=== PATIENT | female | born 1985 | race Caucasian/White ===

== ENCOUNTER 2018-06-10 06:50 | Day surgery (SDC) | payer BC ==
[2018-06-08 15:26] LABS: Absolute Lymphocytes (CBC) 2.6 K/uL (0.7-4.9); Absolute Monocytes 0.4 K/uL (0.1-1.3); Absolute Neutrophil 4.5 K/uL (1.8-8.0); Basophils % 0.8 % (0-1.3); Eosinophils % 2.8 % (0-4.4); Hematocrit 33.2 % (36.0-45.0); Lymphocytes % 32.8 % (15.3-44.8); MPV 8.1 fL (7.6-11.3); Monocytes % 5.4 % (3.3-12.3)
--- OUTSIDE RECORDS SUMMARY | 2018-06-10 06:53 | XMS REPORT | Continuity of Care Document ---
:1985 Author Organization Interface Problems Problem Status Onset Classification Date Comments Source Date Reported N92.0 - EXCESSIVE Active 05/29/19 [facility] [place] [facility] Eustachian tube Resolved Problem 06/07/2018 [facility] dysfunction Group Hypothyroidism Active Problem 06/07/2018 Medical Group Menorrhagia Active Problem 06/07/2018 Medical Group Morbid obesity Active Problem 06/07/2018 Medical Group Encounter for Active Problem 06/07/2018 Medical wellness Group examination Sinusitis Resolved Problem 06/07/2018 Medical Group Medications Medication Details Route Status Patient Ordering Order Source Instructions Provider Date medroxyprogesterone 10 mg=1 Active acetate 10 MG Oral tab, PO, 2019 Medical Tablet [Provera] Daily, # Group 10 tab, 1 Refill(s), Pharmacy: [facility] levothyroxine 137 mcg 137 Active (0.137 mg) oral microgram= 2019 Medical tablet 1 tab, PO, Group Daily, # 90 tab, 1 Refill(s), Pharmacy: [facility] medroxyprogesterone 10 mg=1 Inactive acetate 10 MG Oral tab, PO, 2019 Medical Tablet [Provera] Daily, # Group 10 tab, 1 Refill(s) levothyroxine 137 mcg 137 Inactive (0.137 mg) oral microgram= 2019 Medical tablet 1 tab, PO, Group Daily, # 90 tab, 1 Refill(s) BD Eclipse Luer-Carrie 1 ea, Active Needle/Syringe 30G [facility], 2019 Medical 0.5 inch 1 mL qWeek, use Group to inject b12, # 53 ea, 11 Refill(s), Pharmacy: [facility] Vitamin B12 1000 See Active mcg/mL injectable Instructio 2019 Medical solution ns, 1 mL Group SUB-Q qweek x 4 doses then qMonth, # 15 mL, 3 Refill(s), Pharmacy: [facility] Vitamin B12 1000 See Inactive mcg/mL injectable Instructio 2019 Medical solution ns, 1 mL Group SUB-Q qweek x 4 doses then qMonth, # 15 mL, 3 Refill(s), Pharmacy: [id number] BD Eclipse Luer-Carrie 1 ea, Inactive Needle/Syringe 30G M[facility], 2019 Medical 0.5 inch 1 mL qWeek, use Group to inject b12, # 53 ea, 11 Refill(s), Pharmacy: [facility] #[id number] levothyroxine 137 mcg 137 Inactive (0.137 mg) oral microgram= 2019 Medical tablet 1 tab, PO, Group Daily, # 90 tab, 1 Refill(s), Pharmacy: [facility] #[id number] Phentermine 37.5 mg=1 Active Hydrochloride 37.5 MG tab, PO, 2019 Medical Oral Tablet Daily, X Group 90 day, # 90 tab, 1 Refill(s) medroxyprogesterone 10 mg=1 No Longer acetate 10 MG Oral tab, PO, Active 2018 Medical Tablet [Provera] Daily, # Group 10 tab, 1 Refill(s), Pharmacy: [facility] #[id number] Phentermine 37.5 mg=1 Inactive Hydrochloride 37.5 MG tab, PO, 2019 Medical Oral Tablet Daily, X Group 30 day, # 30 tab, 0 Refill(s) Amoxicillin 0 Active Refill(s) 2019 Medical Group Allergies, Adverse Reactions, Alerts Substance Category Reaction Severity Reaction Status Date Comments Source type Reported Immunizations Immunization Date Given Site Status Last Comments Source Updated influenza virus 05/21/2018 Left completed [facility] Medical vaccine, Deltoid Comment: Group inactivated<sup>1 waited 15 </sup> mins no adverse reaction Results Order Name Results Value Reference Date Interpretation Comments Source Range Pelvis Pelvis Clinical Indication: - heavy bleeding x 5 weeks 05/29 - [facility] Transvagina Transvaginal /2018 - Puma zaldivar US US Comparison: None Read by: Carlos Becerril MD Dictated Date/time: 05/29/18 18:56 Electronically Signed by: Carlos Becerril MD 05/29/18 18:57 FINAL REPORT US PELVIS Technique: Grayscale, color and Doppler transvaginal imaging of the pelvis was performed with standard technique. FINDINGS: TRANSVAGINAL PELVIC ULTRASOUND: UTERUS: The uterus measures 7.7 x 3.9 x 5.3 cm in size. No uterine masses are visualized. The endometrial stripe measures 18 mm in thickness, heterogeneous in appearance, with complex fluid and debris within the endometrial cavity. OVARIES: The right ovary is not seen the left ovary measures 2.2 x 1.5 x 1.3 cm. There is normal ovarian contour and morphology. There are no adnexal masses. The limited Doppler images show normal left ovarian blood flow. OTHER FINDINGS: No free fluid in the pelvic cul-de-sac. IMPRESSION: Heterogeneous appearance of the endometrium with complex fluid and debris in the endometrial cavity, likely representing blood products. Correlation with direct inspection recommended. Histologic sampli ng may also be performed, as clinically warranted. SL: [id number] Vital Signs Vital Sign Value Date Comments Source Height 170.18 cm 05/21/2018 Medical Group BMI Calculated 63.41 05/21/2018 [facility] Weight 183.636 05/21/2018 Medical Group Systolic (mm Hg) 125 05/21/2018 Medical Group Diastolic (mm Hg) 84 05/21/2018 [facility] Heart Rate 93 05/21/2018 [facility] Temperature Oral (F) 98.6 F 05/21/2018 Medical [facility] Encounters Location Location Encounter Encounter Reason Attending ADM DC Status Source Details Type Number For Provider Date Date Visit Outpatient [id number] ANDREZ ABDUL 02/06 Active [place] [facility] [id number] ANDREZ ABDUL 03/26 [place] [facility] [id number] ANDREZ ABDUL 04/24 [place] [facility] [id number] ANDREZ ABDUL 06/13 Active [place] [facility] [id number] KHURSHEED 07/31 [facility] [place] [facility] [id number] ANDREZ ABDUL 08/16 [place] [facility] [id number] ANDREZ ABDUL 10/[address] [facility] [place] [facility] [id number] ANDREZ ABDUL 05/21 Active [facility] Outpatient [id number] Andrez Abdul 05/21 05/22 [facility] /2018 [facility] Between [id number] 06/02 06/03 Primary Visit /2018 [facility] Between [id number] 06/03 06/04 Primary Visit /2018 [facility] Procedures Procedure Code Date Perfomer Comments Source
--- OUTSIDE RECORDS SUMMARY | 2018-06-10 06:53 | XMS REPORT | Summary of Care ---
:1985 Author Organization [facility] Address [address] [place] [address], [address] [place] [address]- Encounter HQ Encntr_alias(FIN) [id number] Date(s): 06/03/18 - 06/04/18 [facility] [address] [place] [address], [address] [place] [address]- [phone] Vital Signs No data available for this section Problem List Condition Effective Dates Status Health Status Informant Eustachian tube Resolved dysfunction(Confirmed) Hypothyroidism(Confirmed) Active Menorrhagia(Confirmed) Active Morbid obesity(Confirmed) Active Encounter for wellness Active examination(Confirmed) Sinusitis(Confirmed) Resolved Allergies, Adverse Reactions, Alerts Substance Reaction Severity Status NKDA Active Medications No data available for this section Results No data available for this section Immunizations Given and Recorded Vaccine Date Status Refusal Reason influenza virus vaccine, inactivated1 05/21/18 Given 1Result Comment: waited 15 mins no adverse reaction Procedures Procedure Date Related Diagnosis Body Site Status None Completed Social History Social History Type Response Smoking Status Never smoker; Ready to change: No; Concerns about tobacco use in household: No; Exposure to Tobacco Smoke None; Cigarette Smoking Last 365 Days No; Reg Smoking Cessation Counseling No entered on: 05/21/18 Assessment and Plan No data available for this section
--- OUTSIDE RECORDS SUMMARY | 2018-06-10 06:53 | XMS REPORT | Summary of Care ---
:1985 Author Organization [facility] Address [address] [place] [address], [address] [place] [address]- Encounter HQ Encntr_alias(FIN) [id number] Date(s): 06/02/18 - 06/03/18 [facility] [address] [place] [address], [address] [place] [address]- [phone] Vital Signs No data available for this [...]
--- OUTSIDE RECORDS SUMMARY | 2018-06-10 06:54 | XMS REPORT | Summary of Care ---
:1985 Author Organization [facility] Address [address] [place] [address], [address] [place] [address]- Encounter HQ Rosaliar_karley(FIN) [id number] Date(s): 05/21/18 - 05/21/18 [facility] [address] [place] [address], [address] [address]- [phone] Discharge Disposition: Home or Self Care Attending Physician: Andrez Mendoza MD Vital Signs Most recent to oldest [Reference Range]: 1 Height 170.18 cm (05/21/18 12:35 PM) Temperature Oral [96.4-99.1 DegF] 98.6 DegF (05/21/18 12:35 PM) Blood Pressure [90-140/60-90 mmHg] 125/84 mmHg (05/21/18 12:35 PM) Peripheral Pulse Rate [60-100 bpm] 93 bpm (05/21/18 12:35 PM) Weight 183.636 kg (05/21/18 12:35 PM) Body Mass Index 63.41 m2 (05/21/18 12:35 PM) Problem List Condition Effective Dates Status Health Status Informant Eustachian tube Resolved dysfunction(Confirmed) Hypothyroidism(Confirmed) Active Menorrhagia(Confirmed) Active Morbid obesity(Confirmed) Active Encounter for wellness Active examination(Confirmed) Sinusitis(Confirmed) Resolved Allergies, Adverse Reactions, Alerts Substance Reaction Severity Status NKDA Active Medications amoxicillin 0 Refill(s) Start Date: 05/21/18 Status: OrderedBD Eclipse Luer-Carrie Needle/Syringe 30G 0.5 inch 1 mL 1 ea, MISC, qWeek, use to inject b12, # 53 ea, 11 Refill(s), Pharmacy: [id number] Start Date: 05/22/18 Stop Date: 05/22/18 Status: DiscontinuedBD Eclipse Luer-Carrie Needle/Syringe 30G 0.5 inch 1 mL 1 ea, MISC, qWeek, use to inject b12, # 53 ea, 11 Refill(s), Pharmacy: [facility] 527 Start Date: 05/22/18 Stop Date: 05/19/30 Status: Orderedlevothyroxine 137 mcg (0.137 mg) oral tablet 137 microgram=1 tab, PO, Daily, # 90 tab, 1 Refill(s), Pharmacy: [facility] 527 Start Date: 05/22/18 Status: Orderedlevothyroxine 137 mcg (0.137 mg) oral tablet 137 microgram=1 tab, PO, Daily, # 90 tab, 1 Refill(s), Pharmacy: [facility] # [id number] Start Date: 05/22/18 Stop Date: 05/22/18 Status: Discontinuedlevothyroxine 137 mcg (0.137 mg) oral tablet 137 microgram=1 tab, PO, Daily, # 90 tab, 1 Refill(s) Start Date: 05/22/18 Stop Date: 05/22/18 Status: Completedphentermine 37.5 mg oral tablet 37.5 mg=1 tab, PO, Daily, X 30 day, # 30 tab, 0 Refill(s) Start Date: 05/21/18 Stop Date: 05/21/18 Status: Discontinuedphentermine 37.5 mg oral tablet 37.5 mg=1 tab, PO, Daily, X 90 day, # 90 tab, 1 Refill(s) Start Date: 05/21/18 Stop Date: 11/17/18 Status: OrderedProvera 10 mg oral tablet 10 mg=1 tab, PO, Daily, # 10 tab, 1 Refill(s), [id number] Start Date: 05/21/18 Stop Date: 05/22/18 Status: DiscontinuedProvera 10 mg oral tablet 10 mg=1 tab, PO, Daily, # 10 tab, 1 Refill(s) Start Date: 05/22/18 Stop Date: 05/22/18 Status: CompletedProvera 10 mg oral tablet 10 mg=1 tab, PO, Daily, # 10 tab, 1 Refill(s), Pharmacy: [facility] Start Date: 05/22/18 Status: OrderedVitamin B12 1000 mcg/mL injectable solution See Instructions, 1 mL SUB-Q qweek x 4 doses then qMonth, # 15 mL, 3 Refill(s), Pharmacy: [facility] Start Date: 05/22/18 Status: OrderedVitamin B12 1000 mcg/mL injectable solution See Instructions, 1 mL SUB-Q qweek x 4 doses then qMonth, # 15 mL, 3 Refill(s), [id number] Start Date: 05/22/18 Stop Date: 05/22/18 Status: Discontinued Results No data available for this section [...]
[2018-06-10] MEDS ORDERED: NA CHLORIDE 0.9% 1,000 ML ONE (07:14)
[2018-06-10] MEDS ORDERED: Ringers Lactate 1,000 ML IV ONE (07:34)
[2018-06-10] MEDS ORDERED: PROPOFOL 200 MG/20 ML VIAL IV ONE ×2 (08:08→08:44)
[2018-06-10] MEDS ORDERED: LIDOCAINE 2% MPF 5 ML VIAL ONE (08:09)
[2018-06-10] MEDS ORDERED: FENTANYL CITR 100 MCG/2 ML ONE (08:09)
[2018-06-10] MEDS ORDERED: ONDANSETRON 4 MG/2 ML VIAL ONE (08:10)
[2018-06-10] MEDS ORDERED: MIDAZOLAM HCL 2 MG/2 ML INJ ONE (08:10)
[2018-06-10] MEDS ORDERED: KETOROLAC 30 MG/ML INJ ONE (09:02)
[2018-06-10] MEDS: PROMETHAZINE 25 MG/ML VIAL ONE ×2 (09:06→09:10)
[2018-06-10] MEDS: MEPERIDINE HCL 50 MG/ML AMP ONE ×2 (09:18→09:28)
--- NOTE | 2018-06-10 20:34 | OP ---
Date of Procedure: 06/10/2018 Surgeon: Tigist Lopez MD Preoperative Diagnoses: Heavy menstrual, irregular bleeding, the patient with morbid obesity, BMI of 61. Procedures Performed: Hysteroscopy, dilatation and curettage. Anesthesia: General with LMA. Specimens: Endometrial curettings. Complications: None. Drains: None. Patient Condition: Stable. Findings: Endometrium thickened globally. No intracavitary lesions. Both tubal ostia were well vis ualized. Scope removed and adequate sampling performed. Indications: The patient is a 32-year-old with heavy bleeding, oligomenorrhea in the past and when s he does have periods bleeding heavy. She was referred to me by Dr. Carolina. On evaluation with michelle granados, her endometrium appeared to be thick. She was here with me in consultation after starting P rovera. Due to the increased risk of endometrial adenocarcinoma or atypia and the patient with her B UT and her menstrual history, decided to perform hysteroscopy, D and C. The patient had been continu ously bleeding for more than 4 weeks at the time I had seen her, so she was brought into the hospital for performing the curettage. Description Of Procedure: After informed consent was verified, she was brought back to the OR, place d in a supine fashion on the operating table after general anesthesia was given and laryngeal mask wa s placed. The patient was placed in a dorsal lithotomy position using Bin stirrups. The weight on the stirrups was checked and good for the weight of the patient. Exam difficult to perform. Speculum placed to expose the cervix. Anterior lip grasped with 2 Allis clamps, prep x3 with Betadine was done. SlimLine diagnostic hysteroscope was introduced through cerv ical canal into the uterine cavity. The cavity had thickened lining as dictated above. Both tubal o stia visualized. No intracavitary lesions. Mostly posterolateral wall on the right thickened. The scope pulled out. Endometrial curettings were performed with a #2 curette. Adequate amount of sampl ing was obtained from all 4 rincon of the uterine cavity. Gentle curettage was performed to prevent a ny adhesions. After these were handed out, all the instruments were removed. Instrument, needle, and sponge counts were done and were correct at the end of the case. The patient was recovered from anesthesia in the OR without any complications and taken to PACU in stable condition. She will be following up with katarina rosales in 1 week for results and then treatment plan, most likely observation with Provera withdrawal ever y 3 months would be optimal for this patient as she is getting pretty soon. However, she has b een counseled thoroughly about weight loss and the risks, mortality and morbidity risks associated wi th for her, the maternal risks and risks were all discussed in detail. She may need a referral to an forest manager at a point where she is ready to try to conceive. ANANTH Voice ID: [id number] Report ID: [id number]
== END 2018-06-10 12:00 | disposition home or self-care (01) ==
LOC: OR 06:50
PROVIDERS: ATTEND Obstetrics & Gynecology
PROC: 0UJD8ZZ Inspection of Uterus and Cervix, Via Natural or Artificial Opening Endoscopic (ICD-10-PCS; 2018-06-10)
PROC: 0UDB7ZX Extraction of Endometrium, Via Natural or Artificial Opening, Diagnostic (ICD-10-PCS; principal; 2018-06-10 08:30)
DX: N92.1 Excessive and frequent menstruation with irregular cycle (principal); E28.2 Polycystic ovarian syndrome; E66.01 Morbid (severe) obesity due to excess calories; Z68.44 Body mass index [BMI] 60.0-69.9, adult; E03.9 Hypothyroidism, unspecified; Z82.49 Family history of ischemic heart disease and other diseases of the circulatory system
CPT/HCPCS: 36415; 81025; 85025; 88305; J2175; J2250; J2405; J2550; J2704; J3010; J7030

== ENCOUNTER 2019-07-17 19:45 | Emergency (ER) | payer BC ==
[2019-07-17 20:18] LABS: Urine Blood NEGATIVE (NEG); Urine Glucose NEGATIVE (NEG); Urine Protein NEGATIVE (NEG); Urine Specific Gravity 1.025 (1.005-1.030)
[2019-07-17 20:30] LABS: Urine Bacteria >50 /HPF (<20); Urine Culture Reflex Order NOT NEEDED; Urine Mucus 1+ /HPF (NONE SEEN); Urine RBC <5 /HPF (NONE SEEN)
--- NOTE | 2019-07-17 20:34 | ER ---
Nurse's Notes [facility] Name: Socorro Nichols Age: 33 yrs Sex: Female : 1985 Arrival Date: 07/17/2019 Time: 19:49 Bed 16 Private MD: Diagnosis: Urinary tract infection, site not specified Presentation: 07/16 20:00 Chief complaint: Patient states: while at the grocery store suddenly I felt dizzy, rr5 having blurred vision, my peripheral vision went to black and having frontal headache going to the right side of my head. denies LOC. 20:00 Coronavirus screen: Patient denies fever greater than 100.4F, cough, shortness of rr5 breath, or difficulty breathing. Proceed with normal triage process. Ebola Screen: Patient negative for fever greater than or equal to 101.5 degrees Fahrenheit, and additional compatible Ebola Virus Disease symptoms Patient denies exposure to infectious person. Patient denies travel to an Ebola-affected area in the 21 days before illness onset. Initial Sepsis Screen: Does the patient meet any 2 criteria? No. Patient's initial sepsis screen is negative. Does the patient have a suspected source of infection? No. Patient's initial sepsis screen is negative. Risk Assessment: Do you want to hurt yourself or someone else? Patient reports no desire to harm self or others. Onset of symptoms was July 17, 2019 at 16:00. 20:00 Method Of Arrival: Ambulatory rr5 20:00 Acuity: GRACIELA 4 rr5 Triage Assessment: 20:00 Headache History: The patient has had previous headaches and this one is different than rr5 previous episodes. Pain: Also complains of nausea. 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 - Social history:: Smoking status: unknown Patient/guardian denies using alcohol, street drugs, tobacco products. Screenin:05 Abuse screen: Denies threats or abuse. Denies injuries from another. Nutritional rr5 screening: No deficits noted. Tuberculosis screening: No symptoms or risk factors identified. Fall Risk None identified. Total Adair Fall Scale indicates No Risk (0-24 pts). Assessment: 20:00 General: Appears in no apparent distress. comfortable, Behavior is calm, cooperative, rr5 appropriate for age. 20:00 Pain: Complains of pain in head Pain radiates to right occipital area Pain currently is rr5 5 out of 10 on a pain scale. Quality of pain is described as aching, Pain began gradually, Is intermittent. Neuro: Level of Consciousness is awake, alert, obeys commands, Oriented to person, place, time, situation, Appropriate for age Reports dizziness, headache in right frontal area, occipital area. Cardiovascular: Capillary refill < 3 seconds Patient's skin is warm and dry. Respiratory: Airway is patent Respiratory effort is even, unlabored, Respiratory pattern is regular, symmetrical. GI: Abdomen is obese, Reports nausea. : No signs and/or symptoms were reported regarding the genitourinary system. EENT: No signs and/or symptoms were reported regarding the EENT system. Derm: Skin is intact, is healthy with good turgor, Skin temperature is warm. Musculoskeletal: Circulation, motion, and sensation intact. Capillary refill < 3 seconds. 21:00 Reassessment: Patient appears in no apparent distress at this time. Patient is alert, rr5 oriented x 3, equal unlabored respirations, skin warm/dry/pink. discharge instruction given and explained without complaints made. Vital Signs: 20:00 BP 156 / 75; Pulse 88; Resp 16; Temp 98.3; Pulse Ox 99% ; Weight 181.44 kg; Height 5 rr5 ft. 7 in. (170.18 cm); Pain 5/10; 21:00 BP 154 / 90; Pulse 97; Resp 19; Pulse Ox 99% ; rr5 20:00 Body Mass Index 62.65 (181.44 kg, 170.18 cm) rr5 ED Course: 19:49 Patient arrived in ED. mr 19:53 Alex Brown, JL is Primary Nurse. rr5 19:53 Brynn Crooks FNP-C is [facility]. snw 19:53 Raul Sultana MD is Attending Physician. snw 20:00 Arm band placed on left wrist. rr5 20:01 Patient has correct armband on for positive identification. Bed in low position. Call rr5 light in reach. 20:09 Triage completed. rr5 20:25 No provider procedures requiring assistance completed. Urine collected: clean catch rr5 specimen, clear, Strep swab sent to lab. 21:00 Patient did not have IV access during this emergency room visit. rr5 Administered Medications: 20:40 Drug: Rocephin (cefTRIAXone) 1 grams Route: IM; Site: right gluteus; rr5 21:00 Follow up: Response: No adverse reaction rr5 20:41 Drug: Ondansetron (Zofran) 4 mg Route: PO; rr5 21:00 Follow up: Response: No adverse reaction rr5 Outcome: 20:33 Discharge ordered by . snw 20:55 Discharged to home ambulatory. rr5 20:55 Condition: stable 20:55 Discharge instructions given to patient, Instructed on discharge instructions, follow up and referral plans. medication usage, Demonstrated understanding of instructions, follow-up care, medications, Prescriptions given X 2. 21:00 Patient left the ED. rr5 Signatures: Brynn Crooks, MANAGER FOOD-C MANAGER FOOD-Csnw Mary Hannon Raymond, RN RN rr5 Corrections: (The following items were deleted from the chart) 20:47 20:00 GI: No signs and/or symptoms were reported involving the gastrointestinal system. rr5 rr5
--- NOTE | 2019-07-17 20:34 | EDPHYS ---
Physician Documentation [facility] Name: Socorro Nichols Age: 33 yrs Sex: Female : 1985 Arrival Date: 07/17/2019 Time: 19:49 Bed 16 Private MD: ED Physician Raul Sultana HPI: 07/16 20:51 This 33 yrs old Female presents to ER via Ambulatory with complaints of snw Headache, Nausea. 20:51 The patient complains of pain to the top of head and forehead. The patient describes snw the headache as aching. Onset: The symptoms/episode began/occurred gradually. Associated signs and symptoms: Pertinent positives: weakness. Severity of symptoms: At its worst the pain was mild, moderate. Headache History: The patient has had previous headaches and this one is similar to previous episodes. It is unknown whether or not the patient has had similar symptoms in the past. The patient has not recently seen a physician. 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 - Social history:: Smoking status: unknown Patient/guardian denies using alcohol, street drugs, tobacco products. ROS: 20:47 Eyes: Negative for injury, pain, redness, and discharge, ENT: Negative for injury, snw pain, and discharge, Neck: Negative for injury, pain, and swelling, Cardiovascular: Negative for chest pain, palpitations, and edema, Respiratory: Negative for shortness of breath, cough, wheezing, and pleuritic chest pain, Abdomen/GI: Negative for abdominal pain, nausea, vomiting, diarrhea, and constipation, Back: Negative for injury and pain, : Negative for injury, bleeding, discharge, and swelling, MS/Extremity: Negative for injury and deformity, Skin: Negative for injury, rash, and discoloration, Psych: Negative for depression, anxiety, suicide ideation, homicidal ideation, and hallucinations. 20:47 Constitutional: Positive for body aches, chills, fatigue, malaise. 20:47 Neuro: Positive for headache, near syncope, weakness. Exam: 20:47 Constitutional: This is a well developed, well nourished patient who is awake, alert, snw and in no acute distress. Head/Face: Normocephalic, atraumatic. Eyes: Pupils equal round and reactive to light, extra-ocular motions intact. Lids and lashes normal. Conjunctiva and sclera are non-icteric and not injected. Cornea within normal limits. Periorbital areas with no swelling, redness, or edema. ENT: Nares patent. No nasal discharge, no septal abnormalities noted. Tympanic membranes are normal and external auditory canals are clear. Oropharynx with no redness, swelling, or masses, exudates, or evidence of obstruction, uvula midline. Mucous membranes moist. Neck: Trachea midline, no thyromegaly or masses palpated, and no cervical lymphadenopathy. Supple, full range of motion without nuchal rigidity, or vertebral point tenderness. No Meningismus. Chest/axilla: Normal chest wall appearance and motion. Nontender with no deformity. No lesions are appreciated. Cardiovascular: Regular rate and rhythm with a normal S1 and S2. No gallops, murmurs, or rubs. Normal PMI, no JVD. No pulse deficits. Respiratory: Lungs have equal breath sounds bilaterally, clear to auscultation and percussion. No rales, rhonchi or wheezes noted. No increased work of breathing, no retractions or nasal flaring. Abdomen/GI: Soft, non-tender, with normal bowel sounds. No distension or tympany. No guarding or rebound. No evidence of tenderness throughout. Back: No spinal tenderness. No costovertebral tenderness. Full range of motion. Skin: Warm, dry with normal turgor. Normal color with no rashes, no lesions, and no evidence of cellulitis. MS/ Extremity: Pulses equal, no cyanosis. Neurovascular intact. Full, normal range of motion. Neuro: Awake and alert, GCS 15, oriented to person, place, time, and situation. Cranial nerves II-XII grossly intact. Motor strength 5/5 in all extremities. Sensory grossly intact. Cerebellar exam normal. Normal gait. Psych: Awake, alert, with orientation to person, place and time. Behavior, mood, and affect are within normal limits. Vital Signs: 20:00 BP 156 / 75; Pulse 88; Resp 16; Temp 98.3; Pulse Ox 99% ; Weight 181.44 kg; Height 5 rr5 ft. 7 in. (170.18 cm); Pain 5/10; 21:00 BP 154 / 90; Pulse 97; Resp 19; Pulse Ox 99% ; rr5 20:00 Body Mass Index 62.65 (181.44 kg, 170.18 cm) rr5 MDM: 19:53 Patient medically screened. snw 20:34 Data reviewed: vital signs, nurses notes. Data interpreted: Pulse oximetry: on room air snw is 99 %. Interpretation: normal. Counseling: I had a detailed discussion with the patient and/or guardian regarding: the historical points, exam findings, and any diagnostic results supporting the discharge/admit diagnosis, lab results, the need for outpatient follow up, to return to the emergency department if symptoms worsen or persist or if there are any questions or concerns that arise at home. Special discussion: I have referred the patient to see his PCP for further evaluation of high blood pressure. Based on the history and exam findings, there is no indication for further emergent testing or inpatient evaluation. I discussed with the patient/guardian the need to see the primary care provider for further evaluation of the symptoms. 07/16 20:00 Order name: Urine Culture snw 07/16 20:00 Order name: Urine Microscopic Only; Complete Time: 20:32 snw 07/16 20:00 Order name: Strep; Complete Time: 20:32 snw 07/16 20:10 Order name: Glucose, Ancillary Testing; Complete Time: 20:32 EDMS 07/16 20:15 Order name: Urine Dipstick--Ancillary (enter results); Complete Time: 20:32 ar5 07/16 20:15 Order name: Urine --Ancillary (enter results); Complete Time: 20:32 ar5 07/16 20:00 Order name: FSBS; Complete Time: 20:05 snw 07/16 20:00 Order name: Urine Test (obtain specimen); Complete Time: 20:18 snw 07/16 20:00 Order name: Urine Dipstick-Ancillary (obtain specimen); Complete Time: 20:18 snw 07/16 20:31 Order name: Throat Culture EDMS Administered Medications: 20:40 Drug: Rocephin (cefTRIAXone) 1 grams Route: IM; Site: right gluteus; rr5 21:00 Follow up: Response: No adverse reaction rr5 20:41 Drug: Ondansetron (Zofran) 4 mg Route: PO; rr5 21:00 Follow up: Response: No adverse reaction rr5 Disposition: 07/17 08:10 Co-signature as Attending Physician, Raul Sultana MD. rn Disposition: 07/17/19 20:33 Discharged to Home. Impression: Urinary tract infection, site not specified. - Condition is Stable. - Discharge Instructions: Urinary Tract Infection, Adult, Rehydration, Adult. - Prescriptions for Augmentin 875- 125 mg Oral Tablet - take 1 tablet by ORAL route every 12 hours for 10 days; 20 tablet. promethazine 25 mg Oral Tablet - take 1 tablet by ORAL route every 6 hours As needed; 20 tablet. - Work release form, Medication Reconciliation Form, Thank You Letter, Antibiotic Education, Prescription Opioid Use form. - Follow up: Emergency Department; When: As needed; Reason: Worsening of condition. Follow up: Private Physician; When: 2 - 3 days; Reason: Recheck today's complaints, Continuance of care, Re-evaluation by your physician. Signatures: Dispatcher [employer] EDFL Brynn Crooks, SALES MANAGEMENT INTERN-C SALES MANAGEMENT INTERN-Csnw Raul Sultana MD MD rn Roque, Raymond, RN RN rr5 Corrections: (The following items were deleted from the chart) 07/16 21:00 20:33 07/17/2019 20:33 Discharged to Home. Impression: Urinary tract infection, site rr5 not specified. Condition is Stable. Forms are Medication Reconciliation Form, Thank You Letter, Antibiotic Education, Prescription Opioid Use. Follow up: Emergency Department; When: As needed; Reason: Worsening of condition. Follow up: Private Physician; When: 2 - 3 days; Reason: Recheck today's complaints, Continuance of care, Re-evaluation by your physician. snw
[2019-07-17] MEDS ORDERED: CEFTRIAXONE 1000 MG/VIAL ONE (20:43)
[2019-07-17] MEDS ORDERED: LIDOCAINE 1% MPF 2 ML AMPULE ONE (20:43)
[2019-07-17] MEDS ORDERED: ONDANSETRON 4 MG (ODT) TAB ONE (20:44)
[2019-07-17 21:05] VITALS: BP 156/75; TEMP 98.3; O2SAT 99
== END 2019-07-17 21:00 | disposition home or self-care (01) ==
LOC: ER 19:45
DX: N39.0 Urinary tract infection, site not specified (principal); E03.9 Hypothyroidism, unspecified
CPT/HCPCS: 87070; 87088; 87086; 81025; 82947; 87081; 96372; 99283; J2001; 81003; 81015

== ENCOUNTER 2022-09-23 07:40 | Emergency (ER) | payer BC ==
[2022-09-23] MEDS ORDERED: ONDANSETRON 4 MG/2 ML VIAL ONE (08:06)
[2022-09-23] MEDS ORDERED: KETOROLAC 30 MG/ML INJ ONE (08:06)
[2022-09-23] MEDS ORDERED: NA CHLORIDE 0.9% 1,000 ML ONE (08:07)
[2022-09-23 08:14] LABS: Absolute Lymphocytes (CBC) 0.8 K/uL (0.7-4.9); MCV 68.1 fL (80-100); MPV 7.6 fL (7.6-11.3); RBC Red Blood Cell Count 5.29 M/uL (3.86-4.86)
[2022-09-23 08:41] LABS: Albumin 3.1 g/dL (3.4-5.0); Bilirubin Total 0.5 mg/dL (0.2-1.0); Potassium 3.5 mEq/L (3.5-5.1); Protein, Total 7.7 g/dL (6.4-8.2)
[2022-09-23 10:44] LABS: Anisocytosis 1+; Blood Morphology Comment NOTED (NOT SEEN); Platelet Estimate ADEQ
[2022-09-23 10:45] LABS: Hypochromasia 1+
[2022-09-23 11:57] LABS: Specific Gravity 1.027 (1.005-1.030)
[2022-09-23 12:02] LABS: Specific Gravity 1.027 (1.005-1.030); Urine Bacteria <20 /HPF (<20); Urine Bilirubin NEGATIVE (Negative); Urine Blood Negative (Negative); Urine Clarity Extremely Turbid (Clear); Urine Color Yellow (Yellow); Urine Glucose NEGATIVE (Negative); Urine Mucus 4+ /HPF (None Seen); Urine Protein 1+ (Negative); Urine RBC <5 /HPF (None Seen); Urine Urobilinogen Normal (Normal); Urine pH 5.5 (5.0-7.0)
--- NOTE | 2022-09-23 12:19 | ER ---
Nurse's Notes [facility] Name: Socorro Nichols Age: 36 yrs Sex: Female : 1985 Arrival Date: 09/23/2022 Time: 07:40 Bed 5 Private MD: Diagnosis: Nausea with vomiting, unspecified;Abdominal pain, Generalized Presentation: 09/23 07:51 Chief complaint: Patient states: N/V since yesterday, diarrhea today. Coronavirus jl7 screen: At this time, the client does not indicate any symptoms associated with coronavirus-19. Ebola Screen: No symptoms or risks identified at this time. Initial Sepsis Screen: Does the patient meet any 2 criteria? No. Patient's initial sepsis screen is negative. Does the patient have a suspected source of infection? No. Patient's initial sepsis screen is negative. Risk Assessment: Do you want to hurt yourself or someone else? Patient reports no desire to harm self or others. Onset of symptoms was September 22, 2022. 07:51 Method Of Arrival: Ambulatory [facility] 07:51 Acuity: GRACIELA 3 jl7 Triage Assessment: 07:52 General: Appears in no apparent distress. uncomfortable, Behavior is calm, cooperative, jl7 appropriate for age. Pain: Complains of pain in abdomen Pain currently is 8 out of 10 on a pain scale. GI: Reports diarrhea, nausea, vomiting. 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 - Social history:: Smoking status: Patient denies any tobacco usage or history of. Screenin:08 [facility] ED Fall Risk Assessment (Adult) History of falling in the last 3 months, ph including since admission No falls in past 3 months (0 pts) Confusion or Disorientation No (0 pts) Intoxicated or Sedated No (0 pts) Impaired Gait No (0 pts) Mobility Assist Device Used No (0 pt) Altered Elimination No (0 pt) Score/Fall Risk Level 0 - 2 = Low Risk Oriented to surroundings, Maintained a safe environment, Hourly rounding (assess needs \T\ fall precautionary measures) done. Abuse screen: Denies threats or abuse. Denies injuries from another. Nutritional screening: No deficits noted. Tuberculosis screening: No symptoms or risk factors identified. Assessment: 08:08 General: Appears in no apparent distress. uncomfortable, Behavior is calm, cooperative, ph appropriate for age. Pain: Complains of pain in back and abdomen. Neuro: Level of Consciousness is awake, alert, confused, Oriented to person, place, time, situation. Cardiovascular: Capillary refill < 3 seconds in bilateral fingers Patient's skin is warm and dry. Respiratory: Airway is patent Respiratory effort is even, unlabored, Respiratory pattern is regular, symmetrical. GI: Abdomen is obese, Reports lower abdominal pain, diarrhea, nausea, vomiting. : No signs and/or symptoms were reported regarding the genitourinary system. Derm: Skin is healthy with good turgor. Vital Signs: 07:51 BP 150 / 110; Pulse 114; Resp 17; Temp 99.1; Pulse Ox 97% ; Pain 8/10; jl7 08:10 BP 115 / 94; Pulse 92; Resp 18; Pulse Ox 99% on R/A; ko1 08:23 BP 113 / 72; Pulse 86; Resp 16; Pulse Ox 97% ; ko1 09:25 BP 123 / 69; Pulse 91; Resp 16; Pulse Ox 98% ; ko1 11:01 BP 116 / 68; Pulse 87; Resp 18; Pulse Ox 98% on R/A; ph 07:51 Pain Scale: Adult jl7 ED Course: 07:43 Patient arrived in ED. mr 07:45 Kota Lazo DO is Attending Physician. ms3 07:52 Triage completed. jl7 07:52 Arm band placed on right wrist. jl7 07:59 Elba Curtis, RN is Primary Nurse. ko1 08:07 CBC with Diff Sent. ph 08:07 CMP Sent. ph 08:07 Lipase Sent. ph 08:07 Initial lab(s) drawn, by nv, sent to lab. Inserted saline lock: 20 gauge in right ph antecubital area, using aseptic technique. Blood collected. 08:08 Patient has correct armband on for positive identification. Bed in low position. Call ph light in reach. Side rails up X 1. Pulse ox on. NIBP on. Door closed. Noise minimized. Warm blanket given. 12:17 Woody Alonzo DO is Referral Physician. ms3 12:32 No provider procedures requiring assistance completed. IV discontinued, intact, ko1 bleeding controlled, No redness/swelling at site. Pressure dressing applied. Administered Medications: 08:07 Drug: NS 0.9% IV 1000 ml Route: IV; Rate: 1 bolus; Site: right antecubital; ph 09:21 Follow up: Response: No adverse reaction; IV Status: Completed infusion; IV Intake: ko1 1000ml 08:07 Drug: TORadol - Ketorolac IVP 15 mg Route: IVP; Site: right antecubital; ph 09:22 Follow up: Response: No adverse reaction; Pain is decreased ko1 08:07 Drug: Ondansetron IVP 4 mg Route: IVP; Site: right antecubital; ph 09:22 Follow up: Response: No adverse reaction; Nausea is decreased ko1 Medication: 08:08 VIS not applicable for this client. ph Intake: 09:21 IV: 1000ml; Total: 1000ml. ko1 Outcome: 12:18 Discharge ordered by . ms3 12:32 Discharged to home ambulatory, with family. ko1 12:32 Condition: improved 12:32 Discharge instructions given to patient, family, Instructed on discharge instructions, follow up and referral plans. medication usage, Demonstrated understanding of instructions, follow-up care, medications, Prescriptions given X 1. 12:32 Patient left the ED. ko1 Signatures: Mary Hannon mr Sierra Villarreal, RN RN Kenny Ferguson RN RN jl7 Kota Lazo DO DO ms3 Elba Curtis RN RN ko1
--- NOTE | 2022-09-23 12:19 | EDPHYS ---
Physician Documentation [facility] Name: Socorro Nichols Age: 36 yrs Sex: Female : 1985 Arrival Date: 09/23/2022 Time: 07:40 Bed 5 Private MD: ED Physician Kota Lazo HPI: 09/23 08:21 This 36 yrs old Female presents to ER via Ambulatory with complaints of Vomiting, ms3 Abdominal Pain. 08:21 36-year-old female with past medical history of anemia, hypothyroidism, vitamin B12 ms3 deficiency, hypertension presents for abdominal pain, nausea, vomiting, diarrhea that began yesterday after taking her Ozempic injection. Patient states her abdomen is aching and rated an 8/10. Patient endorses chills. Patient denies fevers.. 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 - Social history:: Smoking status: Patient denies any tobacco usage or history of. ROS: 08:21 Constitutional: Negative for fever, and chills. Neck: Negative for injury, pain, and ms3 swelling, Cardiovascular: Negative for chest pain, and palpitations. Respiratory: Negative for shortness of breath, cough, wheezing, and pleuritic chest pain. 08:21 MS/Extremity: Negative for injury and deformity, Skin: Negative for injury, rash, and discoloration. 08:21 Abdomen/GI: Positive for abdominal pain, nausea, vomiting, and diarrhea. 08:21 All other systems are negative. Exam: 08:21 Constitutional: This is a well developed, well nourished patient who is awake, alert, ms3 and in no acute distress. Head/Face: Normocephalic, atraumatic. Eyes: Pupils equal round and reactive to light, extra-ocular motions intact. Lids and lashes normal. Conjunctiva and sclera are non-icteric and not injected. Periorbital areas with no swelling, redness, or edema. Neck: Trachea midline, no cervical lymphadenopathy. Supple, full range of motion without nuchal rigidity, or vertebral point tenderness. No Meningismus. Chest/axilla: Normal chest wall appearance and motion. Nontender with no deformity. Cardiovascular: Regular rate and rhythm with a normal S1 and S2. No gallops, murmurs, or rubs. Normal PMI, no JVD. No pulse deficits. Respiratory: Lungs have equal breath sounds bilaterally, clear to auscultation and percussion. No rales, rhonchi or wheezes noted. No increased work of breathing, no retractions or nasal flaring. Abdomen/GI: Soft, non-tender, with normal bowel sounds. No distension or tympany. No guarding or rebound. No evidence of tenderness throughout. Skin: Warm, dry with normal turgor. Normal color with no rashes, no lesions, and no evidence of cellulitis. MS/ Extremity: Pulses equal, no cyanosis. Neurovascular intact. Full, normal range of motion. Vital Signs: 07:51 BP 150 / 110; Pulse 114; Resp 17; Temp 99.1; Pulse Ox 97% ; Pain 8/10; jl7 08:10 BP 115 / 94; Pulse 92; Resp 18; Pulse Ox 99% on R/A; ko1 08:23 BP 113 / 72; Pulse 86; Resp 16; Pulse Ox 97% ; ko1 09:25 BP 123 / 69; Pulse 91; Resp 16; Pulse Ox 98% ; ko1 11:01 BP 116 / 68; Pulse 87; Resp 18; Pulse Ox 98% on R/A; ph 07:51 Pain Scale: Adult jl7 MDM: 08:04 Patient medically screened. ms3 08:21 Differential diagnosis: Nonspecific abd pain, gastritis, viral gastroenteritis. ms3 12:20 Data reviewed: vital signs, nurses notes, lab test result(s), and as a result, I will ms3 discharge patient. I considered the following discharge prescriptions or medication management in the emergency department Medications were administered in the Emergency Department. See MAR. Counseling: I had a detailed discussion with the patient and/or guardian regarding: the historical points, exam findings, and any diagnostic results supporting the discharge/admit diagnosis, lab results, the need for outpatient follow up, to return to the emergency department if symptoms worsen or persist or if there are any questions or concerns that arise at home. Response to treatment: the patient's symptoms have markedly improved after treatment, and as a result, I will discharge patient. Special discussion: Based on the patient's Hx, exam, and Dx evaluation, there is no indication for emergent surgery or inpatient Tx. It is understood by the patient/guardian that if the Sx's persist or worsen they need to return immediately for re-evaluation. 09/23 07:53 Order name: CBC with Diff; Complete Time: 11:28 ms3 09/23 07:53 Order name: CMP; Complete Time: 09:09 ms3 09/23 07:53 Order name: Lipase; Complete Time: 09:09 ms3 09/23 07:53 Order name: Test, Urine; Complete Time: 12:14 ms3 09/23 07:53 Order name: Urinalysis w/ reflexes; Complete Time: 12:14 ms3 09/23 08:20 Order name: Manual Differential; Complete Time: 11:28 EDMS 09/23 07:53 Order name: IV Saline Lock; Complete Time: 08:07 ms3 09/23 07:53 Order name: Labs collected and sent; Complete Time: 08:07 ms3 09/23 11:29 Order name: Cath: If unable to urinate straight cath; Complete Time: 11:42 ms3 Administered Medications: 08:07 Drug: NS 0.9% IV 1000 ml Route: IV; Rate: 1 bolus; Site: right antecubital; ph 09:21 Follow up: Response: No adverse reaction; IV Status: Completed infusion; IV Intake: ko1 1000ml 08:07 Drug: TORadol - Ketorolac IVP 15 mg Route: IVP; Site: right antecubital; ph 09:22 Follow up: Response: No adverse reaction; Pain is decreased ko1 08:07 Drug: Ondansetron IVP 4 mg Route: IVP; Site: right antecubital; ph 09:22 Follow up: Response: No adverse reaction; Nausea is decreased ko1 Disposition Summary: 09/23/22 12:18 Discharge Ordered Location: Home ms3 Condition: Stable ms3 Diagnosis - Nausea with vomiting, unspecified ms3 - Abdominal pain, Generalized ms3 Followup: ms3 - With: Woody Alonzo DO - When: 2 - 3 days - Reason: Recheck today's complaints Discharge Instructions: - Discharge Summary Sheet ph - Abdominal Pain, Adult ms3 - Nausea and Vomiting, Adult ms3 Forms: - Work release form ph - Family Work Release ph - Medication Reconciliation Form ms3 - Thank You Letter ms3 - Antibiotic Education ms3 - Prescription Opioid Use ms3 Prescriptions: - ondansetron 4 mg Oral Tablet,disintegrating - take 1 tablet by ORAL route every 8 hours; 15 tablet; Refills: 0, Product ms3 Selection Permitted Signatures: Dispatcher [employer] Sierra Reilly RN RN ph Kenny Ferguson RN RN jl7 Kota Lazo DO DO ms3 Elba Curtis RN ko1
[2022-09-23 12:58] VITALS: TEMP 99.1
[2022-09-23 13:01] VITALS: O2SAT 98
[2022-09-23 13:03] VITALS: BP 116/68
== END 2022-09-23 12:32 | disposition home or self-care (01) ==
LOC: ER 07:40
DX: R11.2 Nausea with vomiting, unspecified (principal); R10.84 Generalized abdominal pain; I10 Essential (primary) hypertension; E03.9 Hypothyroidism, unspecified
CPT/HCPCS: 96361; 85025; 81001; 36415; 81025; 83690; 80053; 96375; 96374; 99284; J2405; J7030

== ENCOUNTER 2023-01-14 06:53 | Emergency (ER) | payer BC ==
--- OUTSIDE RECORDS SUMMARY | 2023-01-14 06:56 | XMS REPORT | Continuity of Care Document ---
:1985 Author Organization [facility] t Address [address] [facility] [place] [address] Care Team Providers Name Role Phone Pcp, Patient Does Not Have A Primary Care Physician +[id number] Lab, Adc Fam Pob I Attending Clinician Unavailable Perri Albright Attending Clinician PERRI CANDELARIA Attending Clinician Unavailable Doctor Unassigned, [place] Attending Clinician Unavailable Salma Beauchamp Attending Clinician SALMA RICE Attending Clinician Unavailable Andrez Mendoza Attending Clinician Payers Payer Name Policy Type Policy Number Effective Date Expiration Date S ource Problems Condition Condition Condition Status Onset Resolution Last Treating Co mments Source Name Details Category Date Date Treatment Clinician Date N92.0 - N92.0 - Diagnosis Active 2018-05-29 Memoria EXCESSIVE EXCESSIVE 2-15 15:12:00 l AND AND 00:01: [place] FREQUENT FREQUENT 00 MENSTRU MENSTRU Active 05/29/2018 [facility] Dysfunctio Dysfuncti Problem Resolve 2020-05-11 Memoria n of on of d 23:36:46 l eustachian eustachian He rmann tube tube (disorder) (disorder) Resolved Problem 05/11/2020 [facility] Menorrhagi Menorrhag Problem Resolve 2020-05-11 Memoria a ia d 23:36:46 l (finding) (finding) Herm orsibel Resolved Problem 05/11/2020 [facility] Patient Patient Problem Resolve 2020-05-11 M emoria encounter encounter d 23:36:46 l status status [place] (finding) (finding) Resolved Problem 05/11/2020 [facility] Sinusitis Sinusitis Problem Resolve 2020-05-11 Memoria (disorder) (disorder) d 23:36:46 l Resolved [place]uma Problem 05/11/2020 [facility] Hypothyroi Problem Active 2020-05-11 M emoria dism Hypothyroi 23:36:46 l (disorder) dism Faustino n (disorder) Active Problem 05/11/2020 [facility] Morbid Morbid Problem Active 2020-05-11 Ramy bernard obesity obesity 23:36:46 l (disorder) (disorder) He rmann Active Problem 05/11/2020 [facility] Low back Low back Problem Active 2020-05-11 Memoria pain pain 23:36:46 l (disorder) (disorder) He rmann Active Problem 05/11/2020 Medical [facility] No known No known Disease Unive rs active active ity of problems problems [facility] Allergies, Adverse Reactions, Alerts Allergy Allergy Status Severity Reaction(s) Onset Inactive Treating Comm ents Source Name Type Date Date Clinician NO KNOWN Drug Active Univers ALLERGIE Class ity of S [facility] No Known No Known Active Memori a Medicati Medicati l on on [place]uma Allergie Allergie s s Social History Social Habit Start Date Stop Date Quantity Comments Source Sexual orientation [facility] Exposure to 2019-10-09 2019-11-08 Yes [facility] SARS-CoV-2 (event) 00:00:00 09:22:00 Medica l Branch Sex Assigned At [birth year] [facility] 00:00:00 00:00:00 Medical Branch Smoking Status Start Date Stop Date Source Social History [facility] Tobacco smoking consumption [facility] Medications Ordered Filled Start Stop Current Ordering Indication Dosage Frequency Signature Comments Components Source Medication Medication Date Date Medication? Clinician (SIG) Name Name naproxen Yes 375 mg = 1 Mem oria 375 mg oral 1-25 tab, PO, l tablet 23:21: BID, PRN [place] 00 Pain, # 60 tab, 2 Refill(s), Pharmacy: [facility] #[id number], 171.45, cm, 03/17/19 16:04:00 [employer], Height, 185.455, kg, 03/17/19 16:04:00 [employer], Weight { Yes 1 tab, PO, Memoria (Ethinyl 3-31 Daily, or l Estradiol 20:17: any [place] 0.02 MG / 00 generic Levonorgest equivalent rel 0.1 MG , # 84 Oral tab, 3 Tablet) / 7 Refill(s), (Inert Pharmacy: [facility] 1 MG Oral DRUG STORE Tablet) } #[id number] Pack [Aubra 28 Day] levothyroxi Yes = 1 tab, Me moria ne 137 mcg 3-30 PO, Daily, l (0.137 mg) 14:39: # 90 tab, He rmann oral tablet 00 1 Refill(s), Pharmacy: [facility] #[id number] Vitamin B12 Yes See Memori a 1000 mcg/mL 3-30 Instructio l injectable 14:39: ns, 1 mL Her farah solution 00 SUB-Q qMonth, # 15 mL, 3 Refill(s), Pharmacy: [facility] #[id number] { Yes 1 tab, PO, Memoria (Ethinyl 3-30 Daily, # l Estradiol 14:39: 84 tab, 3 Her farah 0.02 MG / 00 Refill(s), Levonorgest Pharmacy: rel 0.1 MG [facility] Oral DRUG STORE Tablet) / 7 #[id number] (Inert Ingredients 1 MG Oral Tablet) } Pack [Aviane 28] levothyroxi Yes = 1 tab, Me moria ne 137 mcg 2-20 PO, Daily, l (0.137 mg) 17:19: # 90 tab, He rmann oral tablet 57 Refill(s) 1, Pharmacy: [facility] #[id number] naproxen 2018-04 Yes 375 mg = 1 Mem oria 375 mg oral 2-27 tab, PO, l tablet 22:58: BID, PRN [place] 00 Pain, # 60 tab, 11 Refill(s), Pharmacy: [facility] #[id number] Vitamin B12 2018-04 Yes See Memori a 1000 mcg/mL 2-04 Instructio l injectable 22:45: ns, 1 mL Her farah solution 54 SUB-Q qMonth, # 15 mL, 3 Refill(s), [id number] Vitamin B12 2018-04 No See Memori a 1000 mcg/mL 2-04 Instructio l injectable 22:44: ns, 1 mL Her farah solution 35 SUB-Q qMonth, # 15 mL, 3 Refill(s) Phentermine 2018-04 Yes 37.5 mg = M emoria Hydrochlori 2-04 1 tab, PO, l de 37.5 MG 22:43: Daily, X Her farah Oral Tablet 40 90 day, # 90 tab, 1 Refill(s) 3 ML 2018-04 Yes 1.8 mg, Memoria liraglutide 2-04 SUB-Q, l 6 MG/ML 22:43: Daily, # 9 Herm rosibel Prefilled 00 mL, 3 Syringe Refill(s), [Saxenda] [id number] 12 HR 2018-04 Yes 2 tab, PO, Memori a Bupropion 2-04 BID, # 360 l Hydrochlori 22:43: tab, 1 Herm rosibel de 90 MG / 00 Refill(s) Naltrexone hydrochlori de 8 MG Extended Release Oral Tablet [Contrave] Insulin Pen 2018-04 Yes 1 ea, Memor ia Benton 2-04 MISC, l Misc/Other 22:43: Daily, # Her farah 00 100 ea, 3 Refill(s), Pharmacy: [facility] #[id number] topiramate Yes 12.5 mg = Me moria 25 mg oral 12-15 0.5 tab, l tablet 20:31: PO, Puma 00 Bedtime, # 45 tab, 1 Refill(s), Pharmacy: [id number] Phentermine Yes 37.5 mg = M emoria Hydrochlori 9-03 1 tab, PO, l de 37.5 MG 20:31: Daily, X Her farah Oral Tablet 00 90 day, # 90 tab, 1 Refill(s) meloxicam Yes 15 mg = 1 Mem oria 15 mg oral 03 tab, PO, l tablet 20:25: Daily, PRN Cecile nn 07 pain, # 30 tab, 1 Refill(s), Pharmacy: [id number] { Yes 1 tab, PO, Memoria (Ethinyl 3-28 Daily, # l Estradiol 18:57: 84 tab, 3 Her farah 0.02 MG / 00 Refill(s), Levonorgest Pharmacy: rel 0.1 MG [facility] Tablet) / (Inert Ingredients 1 MG Oral Tablet) } Pack [Aviane 28] medroxyprog Yes 10 mg = 1 M emoria esterone 2-08 tab, PO, l acetate 10 22:44: Daily, # Her farah MG Oral 43 10 tab, 1 Tablet Refill(s), [Provera] Pharmacy: [facility] levothyroxi Yes 137 Memori a ne 137 mcg 2-08 microgram l (0.137 mg) 22:44: = 1 tab, Her farah oral tablet 18 PO, Daily, # 90 tab, 1 Refill(s), Pharmacy: [facility] medroxyprog No 10 mg = 1 M emoria esterone 2-08 tab, PO, l acetate 10 22:43: Daily, # Her farah MG Oral 36 10 tab, 1 Tablet Refill(s) [Provera] levothyroxi No 137 Memori a ne 137 mcg 2-08 microgram l (0.137 mg) 22:43: = 1 tab, Her farah oral tablet 34 PO, Daily, # 90 tab, 1 Refill(s) BD Eclipse Yes 1 ea, Memori a Luer-Carrie 2-08 MISC, l Needle/Syri 22:43: qWeek, use [place] nge 30G 0.5 19 to inject inch 1 mL b12, # 53 ea, 11 Refill(s), Pharmacy: [facility] Vitamin B12 Yes See Memori a 1000 mcg/mL 2-08 Instructio l injectable 22:43: ns, 1 mL Her farah solution 16 SUB-Q qweek x 4 doses then qMonth, # 15 mL, 3 Refill(s), Pharmacy: [facility] Vitamin B12 No See Memori a 1000 mcg/mL 2-08 Instructio l injectable 15:18: ns, 1 mL Her farah solution 00 SUB-Q qweek x 4 doses then qMonth, # 15 mL, 3 Refill(s), Pharmacy: [facility] #[id number] BD Eclipse 2018-0 No 1 ea, Memori a Luer-Carrie 2-08 MISC, l Needle/Syri 15:18: qWeek, use Puma nge 30G 0.5 00 to inject inch 1 mL b12, # 53 ea, 11 Refill(s), Pharmacy: [facility] #[id number] levothyroxi No 137 Memori a ne 137 mcg 2-08 microgram l (0.137 mg) 15:18: = 1 tab, Her farah oral tablet 00 PO, Daily, # 90 tab, 1 Refill(s), Pharmacy: [facility] #[id number] Phentermine No 37.5 mg = M emoria Hydrochlori 2-07 1 tab, PO, l de 37.5 MG 19:09: Daily, X Her farah Oral Tablet 54 90 day, # 90 tab, 1 Refill(s) medroxyprog No 10 mg = 1 M emoria esterone 2-07 tab, PO, l acetate 10 19:09: Daily, # Her farah MG Oral 00 10 tab, 1 Tablet Refill(s), [Provera] Pharmacy: [facility] #[id number] Phentermine No 37.5 mg = M emoria Hydrochlori 2-07 1 tab, PO, l de 37.5 MG 19:09: Daily, X Her farah Oral Tablet 00 30 day, # 30 tab, 0 Refill(s) Amoxicillin Yes 0 Memori a 2-07 Refill(s) l 18:36: [place]uma 00 proMETHazin 2014-04 Yes 25mg Take 1 Tab Univers e 1-08 by mouth ity of (PHENERGAN) 00:00: every 6 Rajendra as 25 mg 00 (six) Medical tablet hours as Branch needed for Nausea and Vomiting (N/V) for up to 12 doses. proMETHazin 2014-04 Yes 25mg Take 1 Tab Univers e 1-08 by mouth ity of (PHENERGAN) 00:00: every 6 Rajendra as 25 mg 00 (six) Medical tablet hours as Branch needed for Nausea and Vomiting (N/V) for up to 12 doses. proMETHazin 2014-04 Yes 25mg Take 1 Tab Univers e 1-08 by mouth ity of (PHENERGAN) 00:00: every 6 Rajendra as 25 mg 00 (six) Medical tablet hours as Branch needed for Nausea and Vomiting (N/V) for up to 12 doses. Immunizations Ordered Immunization Filled Immunization Date Status Commen ts Source Name Name influenza virus Unknown Completed [facility] [place] vaccine, inactivated influenza virus Unknown Completed [facility] [place] vaccine, inactivated<sup>1</haro p> Vital Signs Vital Name Observation Time Observation Value Comments Source Systolic (mm Hg) 2019-03-17 22:04:00 Ramy rial [place] Diastolic (mm Hg) 2019-03-17 22:04:00 Mem orial [place] Heart Rate 2019-03-17 22:04:00 [facility] [place] Respitory Rate 2019-03-17 22:04:00 Memori al [place] Temperature Oral (F) 2019-03-17 22:04:00 98.3 F [facility] [place] Height 2019-03-17 22:04:00 171.45 cm [facility] [place] Weight 2019-03-17 22:04:00 [facility] [place] BMI Calculated 2019-03-17 22:04:00 Memori al [place] Systolic (mm Hg) 2018-12-15 19:23:00 Ramy rial [place] Diastolic (mm Hg) 2018-12-15 19:23:00 Mem orial [place] Heart Rate 2018-12-15 19:23:00 [facility] [place] Respitory Rate 2018-12-15 19:23:00 Memori al [place] Temperature Oral (F) 2018-12-15 19:23:00 98.1 F [facility] [place] Height 2018-12-15 19:23:00 171.45 cm [facility] [place] Weight 2018-12-15 19:23:00 [facility] [place] BMI Calculated 2018-12-15 19:23:00 Memori al [place] Heart Rate 2018-05-21 18:35:00 [facility] [place] Temperature Oral (F) 2018-05-21 18:35:00 98.6 F [facility] [place] Height 2018-05-21 18:35:00 170.18 cm [facility] [place] BMI Calculated 2018-05-21 18:35:00 Memori al [place] Weight 2018-05-21 18:35:00 [facility] [place] Systolic (mm Hg) 2018-05-21 18:35:00 Ramy rial [place] Diastolic (mm Hg) 2018-05-21 18:35:00 Mem sharmin Bartholomew Procedures This patient has no known procedures. Encounters Start End Encounter Admission Attending Care Care Encounter Source Date/Time Date/Time Type Type Clinicians Facility Department ID 2020-05-08 2020-05-09 Between Radha Brenner [id number] Memoria 22:41:00 22:41:00 Visit r Medicine 29 l [facility] Cecile nn 2020-05-08 2020-05-09 Outpatient [facility] [id number] 16:41:00 16:41:00 29 2020-04-10 2020-04-10 Laboratory Lab, [facility] Fam Pob I [facility] 1.2. [id number] Univers 13:41:29 14:01:29 Only Perri [facility] [id number] [place] [id number] Rajendra as Professio [phone] Ct dical nal [address] [place] [address] [facility] 2020-04-10 2020-04-10 [id number] Univers 13:40:00 13:40:00 PERRI villavicencio [facility] 2019-11-09 2019-11-09 Patient Doctor YUDELKA [id number] Univers 00:00:00 00:00:00 Secure Msg Unassigned, MARA [id number] ity of [place] [facility] [id number] Rajendra as [phone] [address] 2019-11-08 2019-11-08 Laboratory Lab, [facility] Pob I [facility] 1.2. 840.114 [id number] Univers 10:41:17 11:01:17 Only Salma Rice [employer] [id number] [place] [id number] Rajendra as Professio [id number] Ct dical nal [address] [place] [address] [facility] 2019-11-08 2019-11-08 [facility] [id number] Univers 10:40:00 10:40:00 SALMA itlizzette [facility] 2019-07-13 2019-07-[address] [facility] [id number] Memoria 19:17:10 04:59:59 Message r Primary 04 l [facility] 2019-07-13 2019-07-14 Outpatient MHMG MH[facility] [id number] 14:17:10 23:59:59 04 2019-07-12 2019-07-13 Between nullFlavo [facility] Family [id number] Memoria 13:49:28 13:49:28 Visit r Medicine 27 l [facility] [place] 2019-07-12 2019-07-13 Outpatient MHMG MH[facility] [id number] 08:49:28 08:49:28 27 2019-06-03 2019-06-05 Phone nullFlavo [facility] [id number] Memoria 14:27:29 05:59:59 Message r Medicine 03 l [facility] [place] 2019-06-03 2019-06-04 Outpatient MHMG MH[facility] [id number] 08:27:29 23:59:59 03 2019-04-08 2019-04-09 Between nullFlavo [facility] [id number] Memoria 17:43:42 17:43:42 Visit r Primary 25 [facility] 2019-04-08 2019-04-09 Outpatient MHMG MHMG [id number] 11:43:42 11:43:42 25 2019-03-25 2019-03-26 Between nullFlavo [facility] [id number] Memoria 23:12:45 23:12:45 Visit r Primary 24 [facility] 2019-03-25 2019-03-26 Outpatient MHMG MH[facility] [id number] 17:12:45 17:12:45 24 2019-03-22 2019-03-23 Between nullFlavo [facility] [id number] Memoria 20:39:12 20:39:12 Visit r Primary 23 [facility] 2019-03-22 2019-03-23 Outpatient MHMG MH[facility] [id number] 14:39:12 14:39:12 23 2019-03-18 2019-03-19 Between nullFlavo [facility] [id number] Memoria 18:30:50 18:30:50 Visit r Primary 22 [facility] 2019-03-18 2019-03-19 Outpatient MHMG MHMG [id number] 12:30:50 12:30:50 22 2019-03-17 2019-03-18 Outpatient nullFlavo [facility] [id number] Memoria 21:45:00 05:59:59 r Primary 10 [facility] 2019-03-17 2019-03-17 Outpatient Reji, MG MHMG [id number] 15:45:00 23:59:59 Andrez Jones 2019-03-17 2019-03-17 Outpatient MHIE MHIE [id number] Memoria 15:45:00 15:45:00 10 [facility] 2018-12-30 2018-12-31 Between nullFlavo MHMG [id number] Memoria 21:24:28 21:24:28 Visit r Primary 21 [facility] 2018-12-30 2018-12-31 Outpatient MHMG MHMG [id number] 16:24:28 16:24:28 21 2018-12-29 2018-12-30 Between nullFlavo MHMG [id number] Memoria 19:58:54 19:58:54 Visit r Primary 20 [facility] 2018-12-29 2018-12-30 Outpatient MHMG MH[facility] [id number] 14:58:54 14:58:54 20 2018-12-21 2018-12-22 Between nullFlavo MHMG [id number] Memoria 20:34:35 20:34:35 Visit r Primary 19 [facility] 2018-12-21 2018-12-22 Outpatient MHMG MHMG [id number] 15:34:35 15:34:35 19 2018-12-16 2018-12-17 Between nullFlavo MG [id number] Memoria 19:07:41 19:07:41 Visit r Primary 18 [facility] 2018-12-16 2018-12-17 Outpatient MHMG MHMG [id number] 14:07:41 14:07:41 18 2018-12-15 2018-12-16 [place] [id number] Memoria 19:30:00 04:59:59 r Primary 08 [facility] 2018-12-15 2018-12-15 Outpatient Reji, MG [facility] [id number] 14:30:00 23:59:59 Andrez Fournier [place] 2018-12-15 2018-12-15 Outpatient MHIE MHIE [id number] Memoria 14:30:00 14:30:00 08 zen [place] 2018-12-11 2018-12-11 Ambulatory nullFlavo [facility]MG [id number] Memoria 18:45:00 18:45:00 Pre-Reg r Primary 09 [facility] 2018-12-11 2018-12-11 Outpatient MHIE MHIE [id number] Memoria 13:45:00 13:45:00 09 [facility] 2018-12-11 2018-12-11 Outpatient Reji, MHMG MHMG [id number] 13:45:00 13:45:00 Andrezfede Jones 2018-12-08 2018-12-09 Between nullFlavo [facility]MG [id number] Memoria 14:54:57 14:54:57 Visit r Primary 16 [facility] 2018-12-08 2018-12-09 Outpatient MHMG MHMG [id number] 09:54:57 09:54:57 16 2018-12-07 2018-12-08 Between nullFlavo MHMG [id number] Memoria 17:40:41 17:40:41 Visit r Primary 15 [facility] 2018-12-07 2018-12-08 Outpatient MHMG MHMG [id number] 12:40:41 12:40:41 15 2018-10-14 2018-10-15 Between nullFlavo MHMG [id number] Memoria 12:27:01 12:27:01 Visit r Primary 14 [facility] 2018-10-14 2018-10-15 Outpatient MHMG MHMG [id number] 07:27:01 07:27:01 14 2018-07-13 2018-07-14 Between nullFlavo MHMG [id number] Memoria 16:46:21 16:46:21 Visit r Primary 13 [facility] 2018-07-13 2018-07-14 Outpatient MHMG MHMG [id number] 11:46:21 11:46:21 13 2018-07-09 2018-07-10 Between nullFlavo MHMG [id number] Memoria 16:02:30 16:02:30 Visit r Primary 12 [facility] 2018-07-09 2018-07-10 Outpatient MHMG MHMG [id number] 11:02:30 11:02:30 12 2018-06-18 2018-06-19 Between nullFlavo MHMG [id number] Memoria 17:22:18 17:22:18 Visit r Primary 11 [facility] 2018-06-18 2018-06-19 Outpatient MHMG MHMG [id number] 11:22:18 11:22:18 11 2018-06-03 2018-06-04 Between nullFlavo MHMG [id number] Memoria 16:06:18 16:06:18 Visit r Primary 10 [facility] 2018-06-03 2018-06-04 Outpatient MHMG MHMG [id number] 10:06:18 10:06:18 10 2018-06-02 2018-06-03 Between nullFlavo MH[facility] [id number] Memoria 19:56:52 19:56:52 Visit r Primary 09 [facility] 2018-06-02 2018-06-03 Outpatient MHMG MHMG [id number] 13:56:52 13:56:52 09 2018-05-21 2018-05-22 Outpatient nullFlavo MHMG [id number] Memoria 19:00:00 05:59:59 r Primary 07 [facility] 2018-05-21 2018-05-21 Outpatient Reji, MHMG MHMG [id number] 13:00:00 23:59:59 Andrez 07 [place] 2018-05-21 2018-05-21 Outpatient Mendoza, MHMG MHMG [id number] 13:00:00 23:59:59 Andrez Rutherfordley 2018-05-21 2018-05-21 Outpatient MHIE MHIE [id number] Memoria 13:00:00 13:00:00 07 zen Bartholomew 2016-10-22 2016-10-22 Outpatient MHIE MHIE [id number] Memoria 12:45:00 12:45:00 06 zen Bartholomew 2016-08-16 2016-08-16 Outpatient MHIE MHIE [id number] Memoria 11:00:00 11:00:00 05 ezn Bartholomew 2016-07-31 2016-07-31 Outpatient MHIE MHIE [id number] Memoria 11:45:00 11:45:00 04 zen Bartholomew 2016-06-13 2016-06-13 Outpatient MHIE MHIE [id number] Memoria 15:30:00 15:30:00 03 zen Bartholomew 2016-04-24 2016-04-24 Outpatient MHIE MHIE [id number] Memoria 10:30:00 10:30:00 02 zen Bartholomew 2016-03-26 2016-03-26 Outpatient MHIE MHIE [id number] Memoria 13:15:00 13:15:00 01 zen Bartholomew 2016-02-07 2016-02-07 Outpatient IE IE [id number] Memoria 12:45:00 12:45:00 00 zen Bartholomew Results This patient has no known results.
[2023-01-14 07:30] LABS: Absolute Lymphocytes (CBC) 2.3 K/uL (0.7-4.9); Hematocrit 32.6 % (36.0-45.0); Lymphocytes % 24.4 % (15.3-44.8); MPV 7.3 fL (7.6-11.3); Platelets 419 thou/uL (152-406); RBC Red Blood Cell Count 4.87 M/uL (3.86-4.86)
[2023-01-14] MEDS ORDERED: MORPHINE 4 MG/ML SYR ONE (07:36)
[2023-01-14] MEDS ORDERED: NA CHLORIDE 0.9% 1,000 ML ONE (07:36)
[2023-01-14] MEDS ORDERED: ONDANSETRON 4 MG/2 ML VIAL ONE (07:36)
[2023-01-14] MEDS ORDERED: FAMOTIDINE 20 MG/2 ML VIAL IV ONE (07:36)
[2023-01-14 07:47] LABS: Bilirubin Total 0.2 mg/dL (0.2-1.0); Potassium 4.1 mEq/L (3.5-5.1); Protein, Total 7.4 g/dL (6.4-8.2)
--- NOTE | 2023-01-14 07:53 | RAD REPORT ---
EXAM DESCRIPTION: US - Abdomen Exam Limited - 01/14/2023 7:42 am CLINICAL HISTORY: ABD PAIN COMPARISON: No comparisons TECHNIQUE: Sonographic grayscale and color flow images of the right upper abdominal quadrant were obtained. FINDINGS: The gallbladder demonstrates small shadowing gallstones in the fundus. Mild echogenic slud ge. Small fundal fold. No pericholecystic fluid or gallbladder wall thickening. The common bile duct is normal measuring 5 mm. The liver demonstrates no findings of intrahepatic biliary dilatation. IMPRESSION: Cholelithiasis and mild gallbladder sludge. No findings to suggest acute cholecystitis.
[2023-01-14 08:07] LABS: Specific Gravity 1.017 (1.005-1.030)
[2023-01-14 08:09] LABS: Specific Gravity 1.017 (1.005-1.030); Urine Bacteria <20 /HPF (<20); Urine Bilirubin NEGATIVE (Negative); Urine Blood Negative (Negative); Urine Clarity Turbid (Clear); Urine Color Light-Yellow (Yellow); Urine Glucose NEGATIVE (Negative); Urine Protein NEGATIVE (Negative); Urine RBC <5 /HPF (None Seen); Urine Urobilinogen Normal (Normal); Urine pH 7.5 (5.0-7.0)
[2023-01-14 08:48] LABS: Anisocytosis SLIGHT; Blood Morphology Comment NOTED (NOT SEEN); Platelet Estimate ADEQ; White Blood Cell Scan OK (OK)
--- NOTE | 2023-01-14 08:55 | RAD REPORT ---
EXAM DESCRIPTION: Dong Single View01/14/2023 8:47 am CLINICAL HISTORY: ABDOMINAL DISTENTION COMPARISON: No comparisons TECHNIQUE: Portable AP view of the chest. FINDINGS: The lungs are clear. No pneumothorax or effusion. The cardiomediastinal contours are unre markable. IMPRESSION: No acute cardiopulmonary process.
--- NOTE | 2023-01-14 08:59 | ER ---
Nurse's Notes [facility] Name: Socorro Nichols Age: 37 yrs Sex: Female : 1985 Arrival Date: 01/14/2023 Time: 06:53 Bed 20 Private MD: Diagnosis: Other cholelithiasis without obstruction;Calculus of gallbladder without cholecystitis;Obesity, unspecified Presentation: 01/14 07:16 Ebola Screen: Patient denies travel to an Ebola-affected area in the 21 days before ll1 illness onset. Initial Sepsis Screen: Does the patient meet any 2 criteria? No. Patient's initial sepsis screen is negative. Does the patient have a suspected source of infection? Yes: Acute abdominal pain. Risk Assessment: Do you want to hurt yourself or someone else? Patient reports no desire to harm self or others. 07:16 Acuity: GRACIELA 3 ll1 07:16 Chief complaint: Patient states: abdominal pain and vomiting that started yesterday. cp4 07:16 Coronavirus screen: Client denies travel out of the [place] in the last 14 days. At this cp4 time, the client does not indicate any symptoms associated with coronavirus-19. Onset of symptoms was January 13, 2023. 07:16 Method Of Arrival: Ambulatory cp4 Triage Assessment: 07:16 General: Appears in no apparent distress. 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 - Social history:: Smoking status: Patient denies any tobacco usage or history of. Screenin:18 [facility] ED Fall Risk Assessment (Adult) History of falling in the last 3 months, cp4 including since admission No falls in past 3 months (0 pts) Confusion or Disorientation No (0 pts) Intoxicated or Sedated No (0 pts) Impaired Gait No (0 pts) Mobility Assist Device Used No (0 pt) Altered Elimination No (0 pt) Score/Fall Risk Level 0 - 2 = Low Risk Oriented to surroundings, Maintained a safe environment, Educated pt \T\ family on fall prevention, incl call for assistance when getting out of bed, Hourly rounding (assess needs \T\ fall precautionary measures) done. Abuse screen: Denies threats or abuse. Nutritional screening: No deficits noted. Tuberculosis screening: No symptoms or risk factors identified. Assessment: 07:18 General: Appears in no apparent distress. Behavior is calm, cooperative, appropriate cp4 for age. Pain: Complains of pain in right lower quadrant Pain currently is 8 out of 10 on a pain scale. Neuro: No deficits noted. Cardiovascular: No deficits noted. Respiratory: No deficits noted. GI: Bowel sounds present X 4 quads. Abd is soft and non tender X 4 quads. : No deficits noted. EENT: No deficits noted. Derm: No deficits noted. Musculoskeletal: No deficits noted. Vital Signs: 07:08 BP 157 / 102 LA Sitting (auto/reg); Pulse 79 MON; Resp 18 S; Temp 98.4(O); Pulse Ox 98% ds4 on R/A; Weight 174.63 kg (R); Height 5 ft. 7 in. (R); 07:08 Body Mass Index 60.30 (174.63 kg, 170.18 cm) ds4 ED Course: 06:54 Patient arrived in ED. rg4 07:02 Arm band placed on Patient placed in an exam room, on a stretcher. ll1 07:06 Melecio Pickering MD is Attending Physician. [facility] 07:16 Triage completed. ll1 07:17 Tara Mccormick is Primary Nurse. cp4 07:18 Bed in low position. Call light in reach. Side rails up X 1. cp4 07:18 No provider procedures requiring assistance completed. cp4 07:26 CBC with Diff Sent. ds4 07:26 CMP Sent. ds4 07:26 Lipase Sent. ds4 07:26 Inserted saline lock: 22 gauge in right antecubital area, using aseptic technique. ds4 Blood collected. 07:44 Abdomen Limited US In Process Unspecified. EDMS 08:00 Test, Urine Sent. cp4 08:01 Urinalysis w/ reflexes Sent. cp4 08:37 CT Abd/Pelvis - IV Contrast Only In Process Unspecified. EDMS 08:49 Chest Single View XRAY In Process Unspecified. EDMS 08:58 Kalpesh Cherry MD is Referral Physician. anjelica 10:10 Provided Education on: GALLSTONES.. cp4 10:10 intact, bleeding controlled, No redness/swelling at site. Pressure dressing applied. cp4 Administered Medications: 07:29 Drug: NS 0.9% IV 1000 ml IV at 1 bolus Per protocol; 1000 mL bolus Route: IV; Rate: 1 cp4 bolus; Site: right antecubital; 07:29 Drug: Famotidine IVP 20 mg IVP once; dilute with 10 mL 0.9% NaCl; give over 2 minutes cp4 Route: IVP; Site: right antecubital; 11:08 Follow up: Response: No adverse reaction cp4 07:29 Drug: Ondansetron IVP 4 mg IVP once; over 2 minutes Route: IVP; Site: right antecubital;cp4 07:30 Drug: morphine IVP or IV 4 mg IVP once over 4 mins Route: IVP; Infused Over: 4 mins; cp4 Site: right antecubital; 09:04 Drug: Acetaminophen PO 1000 mg PO once Route: PO; cp4 11:07 Follow up: Response: No adverse reaction cp4 Medication: 07:18 VIS not applicable for this client. cp4 Outcome: 08:58 Discharge ordered by . anjelica 10:10 Discharged to home ambulatory, cp4 10:10 Condition: stable 10:10 Discharge instructions given to patient, Instructed on discharge instructions, follow up and referral plans. medication usage, Demonstrated understanding of instructions, follow-up care, medications, Prescriptions given X 3, 10:12 Patient left the ED. ds4 Signatures: Dispatcher [employer] EDMS Melecio Pickering MD MD cha Swanson, Donovan ds4 Adelina Darden4 Renetta Miller RN RN 1 Tara Mccormick cp4 Corrections: (The following items were deleted from the chart) 11:07 11:05 Onset of symptoms cp4 cp4
--- NOTE | 2023-01-14 08:59 | EDPHYS ---
Physician Documentation [facility] Name: Socorro Nichols Age: 37 yrs Sex: Female : 1985 Arrival Date: 01/14/2023 Time: 06:53 Bed 20 Private MD: ED Physician Melecio Pickering HPI: 01/14 07:31 This 37 yrs old Female presents to ER via Unassigned with complaints of anjelica Abdominal Pain, Back Pain, Vomiting. 07:31 The patient presents with pain that is acute, with no known mechanism of injury. anjelica RN RECOVERY: 07:16 LMP 12/2022, unknown cp4 Historical: - Allergies: 07:16 No Known Allergies; ll1 - PMHx: 07:16 Anemia; Hypertensive disorder; Hypothyroidism; PCOS; Vitamin B12 Deficiency; ll1 - Immunization history:: Adult Immunizations up to date. - Social history:: Smoking status: Patient denies any tobacco usage or history of. ROS: 07:33 Constitutional: Negative for fever, chills, and weight loss, Eyes: Negative for injury, anjelica pain, redness, and discharge, ENT: Negative for injury, pain, and discharge, Neck: Negative for injury, pain, and swelling, Cardiovascular: Negative for chest pain, palpitations, and edema, Respiratory: Negative for shortness of breath, cough, wheezing, and pleuritic chest pain, Back: Negative for injury and pain, : Negative for injury, bleeding, discharge, and swelling, MS/Extremity: Negative for injury and deformity, Skin: Negative for injury, rash, and discoloration, Neuro: Negative for headache, weakness, numbness, tingling, and seizure, Psych: Negative for depression, anxiety, suicide ideation, homicidal ideation, and hallucinations, Allergy/Immunology: Negative for hives, rash, and allergies, Endocrine: Negative for neck swelling, polydipsia, polyuria, polyphagia, and marked weight changes, Hematologic/Lymphatic: Negative for swollen nodes, abnormal bleeding, and unusual bruising, 07:33 Abdomen/GI: Positive for abdominal pain, of the epigastric area and right upper quadrant, Exam: 07:33 Constitutional: This is a well developed, well nourished patient who is awake, alert, anjelica and in no acute distress. Head/Face: Normocephalic, atraumatic. Eyes: Pupils equal round and reactive to light, extra-ocular motions intact. Lids and lashes normal. Conjunctiva and sclera are non-icteric and not injected. Cornea within normal limits. Periorbital areas with no swelling, redness, or edema. ENT: Nares patent. No nasal discharge, no septal abnormalities noted. Tympanic membranes are normal and external auditory canals are clear. Oropharynx with no redness, swelling, or masses, exudates, or evidence of obstruction, uvula midline. Mucous membranes moist. Neck: Trachea midline, no thyromegaly or masses palpated, and no cervical lymphadenopathy. Supple, full range of motion without nuchal rigidity, or vertebral point tenderness. No Meningismus. Chest/axilla: Normal chest wall appearance and motion. Nontender with no deformity. No lesions are appreciated. Cardiovascular: Regular rate and rhythm with a normal S1 and S2. No gallops, murmurs, or rubs. Normal PMI, no JVD. No pulse deficits. Respiratory: Lungs have equal breath sounds bilaterally, clear to auscultation and percussion. No rales, rhonchi or wheezes noted. No increased work of breathing, no retractions or nasal flaring. Back: No spinal tenderness. No costovertebral tenderness. Full range of motion. Skin: Warm, dry with normal turgor. Normal color with no rashes, no lesions, and no evidence of cellulitis. MS/ Extremity: Pulses equal, no cyanosis. Neurovascular intact. Full, normal range of motion. Neuro: Awake and alert, GCS 15, oriented to person, place, time, and situation. Cranial nerves II-XII grossly intact. Motor strength 5/5 in all extremities. Sensory grossly intact. Cerebellar exam normal. Normal gait. Psych: Awake, alert, with orientation to person, place and time. Behavior, mood, and affect are within normal limits. 07:33 Abdomen/GI: Inspection: distension, that is mild, Bowel sounds: normal, Palpation: mild abdominal tenderness, moderate abdominal tenderness, in the epigastric area, posterior aspect of right lateral abdomen, anterior aspect of right lateral abdomen and right upper quadrant, 07:57 ECG was reviewed by the Attending Physician. [facility] Vital Signs: 07:08 BP 157 / 102 LA Sitting (auto/reg); Pulse 79 MON; Resp 18 S; Temp 98.4(O); Pulse Ox 98% ds4 on R/A; Weight 174.63 kg (R); Height 5 ft. 7 in. (R); 07:08 Body Mass Index 60.30 (174.63 kg, 170.18 cm) ds4 MDM: 07:06 Patient medically screened. [facility] 07:35 Differential diagnosis: bowel obstruction, cholecystitis, Cholelithiasis, anjelica diverticulitis, non-specific abd pain. Data reviewed: vital signs, nurses notes, lab test result(s), EKG, radiologic studies, CT scan, plain films, ultrasound. Consideration of Admission/Observation Escalation of care including admission/observation considered. I considered the following discharge prescriptions or medication management in the emergency department Medications were administered in the Emergency Department. See MAR. Test considered but Not performed: MRI: no mrcp. Care significantly affected by the following chronic conditions: Hypertension, anemia, pcos, vit b 12, hypothyroid. Counseling: I had a detailed discussion with the patient and/or guardian regarding the historical points, exam findings, and any diagnostic results supporting the discharge/admit diagnosis, lab results, radiology results. 01/14 07:20 Order name: CBC with Diff; Complete Time: 09:52 [facility] 01/14 07:20 Order name: CMP; Complete Time: 08:31 [facility] 01/14 07:20 Order name: Lipase; Complete Time: 08:31 [facility] 01/14 07:20 Order name: Test, Urine; Complete Time: 08:31 [facility] 01/14 07:20 Order name: Urinalysis w/ reflexes; Complete Time: 08:31 [facility] 01/14 08:48 Order name: CBC Smear Scan; Complete Time: 09:52 [facility] 01/14 07:20 Order name: Abdomen Limited US; Complete Time: 08:31 [facility] 01/14 07:20 Order name: CT Abd/Pelvis - IV Contrast Only; Complete Time: 09:52 [facility] 01/14 07:29 Order name: Chest Single View XRAY; Complete Time: 09:52 [facility] 01/14 07:29 Order name: EKG; Complete Time: 07:30 [facility] 01/14 07:20 Order name: IV Saline Lock; Complete Time: 07:26 [facility] 01/14 07:20 Order name: Labs collected and sent; Complete Time: 07:26 [facility] 01/14 07:29 Order name: EKG - Nurse/Tech; Complete Time: 07:52 anjelica EC:57 Rate is 65 beats/min. Rhythm is regular. QRS [place] is Normal. [place] interval is normal. QRS anjelica interval is normal. QT interval is normal. No Q waves. T waves are Normal. No ST changes noted. Clinical impression: NSR w/ Non-specific ST/T Changes and No evidence of ischemia. Interpreted by me. Reviewed by me. Administered Medications: 07:29 Drug: NS 0.9% IV 1000 ml IV at 1 bolus Per protocol; 1000 mL bolus Route: IV; Rate: 1 cp4 bolus; Site: right antecubital; 07:29 Drug: Famotidine IVP 20 mg IVP once; dilute with 10 mL 0.9% NaCl; give over 2 minutes cp4 Route: IVP; Site: right antecubital; 11:08 Follow up: Response: No adverse reaction cp4 07:29 Drug: Ondansetron IVP 4 mg IVP once; over 2 minutes Route: IVP; Site: right antecubital;cp4 07:30 Drug: morphine IVP or IV 4 mg IVP once over 4 mins Route: IVP; Infused Over: 4 mins; cp4 Site: right antecubital; 09:04 Drug: Acetaminophen PO 1000 mg PO once Route: PO; cp4 11:07 Follow up: Response: No adverse reaction cp4 Disposition Summary: 01/14/23 08:58 Discharge Ordered Notes: Location: Home anjelica Problem: new anjelica Symptoms: have improved anjelica Condition: Stable anjelica Diagnosis - Other cholelithiasis without obstruction anjelica - Calculus of gallbladder without cholecystitis anjelica - Obesity, unspecified anjelica Followup: anjelica - With: Private Physician - When: 2 - 3 days - Reason: Recheck today's complaints, Continuance of care, Re-evaluation by your physician Followup: anjelica - With: Kalpesh Cherry MD - When: 2 - 3 days - Reason: Recheck today's complaints, Re-evaluation by your physician Discharge Instructions: - Discharge Summary Sheet anjelica - Obesity, Adult anjelica - Cholelithiasis ajnelica - Cholelithiasis, [id number] anjelica - Obesity, Adult, [id number] anjelica Forms: - Medication Reconciliation Form anjelica - Thank You Letter anjelica - Antibiotic Education anjelica - Prescription Opioid Use anjelica - Patient Portal Instructions anjelica - Leadership Thank You Letter anjelica - Work release form ko1 - Family Work Release ko1 Prescriptions: - ondansetron 4 mg Oral Tablet,disintegrating - take 1 tablet ORAL route every 6 hours for 5 days; 20 tablet; Refills: 0, [facility] Product Selection Permitted - Pepcid 20 mg Oral tablet - take 1 tablet ORAL route every 12 hours for 21 days; 42 tablet; Refills: 0, [facility] Product Selection Permitted - dicyclomine 20 mg Oral tablet - take 1 tablet ORAL route 4 times per day; 28 tablet; Refills: 0, Product [facility] Selection Permitted Signatures: Dispatcher [employer] Melecio Camarena MD MD cha Lewis, Lynsay, RN RN ll1 Tara Mccormick cp4
--- NOTE | 2023-01-14 09:13 | RAD REPORT ---
EXAM DESCRIPTION: CT - Abdomen Pelvis W Contrast - 01/14/2023 8:35 am CLINICAL HISTORY: ABD PAIN COMPARISON: Abdomen Exam Limited dated 01/14/2023 TECHNIQUE: Thin cut axial CT imaging of the abdomen and pelvis was performed following intravenous a dministration of 100 mL Isovue 300. Multiplanar reformats were generated and reviewed. All CT scans are performed using dose optimization technique as appropriate and may include automated exposure control or mA/KV adjustment according to patient size. FINDINGS: Large [id number] somewhat limits evaluation. No suspicious findings in the lung bases. The liver, spleen, and pancreas show no suspicious findings. Gallbladder and biliary tree are also wi thout suspicious finding. Symmetric renal function is seen with no hydronephrosis or suspicious renal mass. 1.3 cm right interp olar cortical lesion is suggestive of a small cyst. No dilated bowel loops or bowel wall thickening. Appendix is unremarkable. No free air, free fluid or inflammatory stranding. No hernia, mass or bulky lymphadenopathy. The urinary bladder is without sig nificant finding. No suspicious bony findings. IMPRESSION: No acute intra-abdominal process. Incidental note made of a 1.3 cm right renal cortical probable small cyst.
[2023-01-14] MEDS ORDERED: ACETAMINOPHEN 500 MG TAB ONE (09:15)
[2023-01-14 10:21] VITALS: BP 157/102; TEMP 98.4; O2SAT 98
--- NOTE | 2023-01-14 12:49 | EKG ---
Test Date: 2023-01-14 Test Time: 07:47:31 Gis Geographer: MICHELLE MEASUREMENT RESULTS: Intervals: Rate: 65 NV: 144 QRSD: 94 QT: 422 QTc: 438 Mcdonald: P: 14 NV: 144 QRS: 36 T: 15 INTERPRETIVE STATEMENTS: Normal sinus rhythm Normal ECG No previous ECG available for comparison Electronically Signed On 01-14-23 12:48:03 CDT by Sal Brush
== END 2023-01-14 10:12 | disposition home or self-care (01) ==
LOC: ER 06:53
DX: K80.80 Other cholelithiasis without obstruction (principal); K80.20 Calculus of gallbladder without cholecystitis without obstruction; E66.9 Obesity, unspecified; Z68.44 Body mass index [BMI] 60.0-69.9, adult
CPT/HCPCS: 93005; 85025; 81001; 36415; 81025; 83690; 80053; 74177; 71045; 76705; 96375; 96374; 99284; Q9967; J2405; J7030

== ENCOUNTER 2023-01-17 10:42 | Day surgery (SDC) | payer BC ==
[2023-01-17] MEDS ORDERED: Ringers Lactate 1,000 ML IV ONE ×2 (11:25→14:54)
[2023-01-17] MEDS ORDERED: FENTANYL CITR 100 MCG/2 ML ONE ×2 (12:30→15:43)
[2023-01-17] MEDS ORDERED: propofoL 200 MG/20 ML VIAL IV ONE (12:30)
[2023-01-17] MEDS ORDERED: dexAMETHasone 10 MG/ML VIAL ONE (12:31)
[2023-01-17] MEDS: CEFOXITIN SODIUM 1 GM/VIAL ONE ×2 (12:31→13:32)
[2023-01-17] MEDS ORDERED: LIDOCAINE 2% MPF 5 ML VIAL ONE (12:31)
[2023-01-17] MEDS ORDERED: MIDAZOLAM HCL 2 MG/2 ML INJ ONE (12:31)
[2023-01-17] MEDS ORDERED: ROCURONIUM 50 MG/5 ML VIAL IV ONE (12:31)
[2023-01-17] MEDS ORDERED: KETOROLAC 30 MG/ML INJ ONE (12:31)
[2023-01-17] MEDS ORDERED: ONDANSETRON 4 MG/2 ML VIAL ONE ×2 (12:32→15:08)
[2023-01-17] MEDS ORDERED: SCOPOLAMINE HYDROBROMIDE PATCH TD ONE (13:40)
[2023-01-17 14:14] LABS: Urine Specific Gravity/Preg 1.025 (1.005-1.030)
[2023-01-17] MEDS ORDERED: SUGAMMADEX SODIUM 200 MG/2 ML VIAL IV ONE (14:23)
--- NOTE | 2023-01-17 14:41 | P.BOP ---
Preoperative diagnosis: acute cholecystitis, symptomatic cholelithiasis, morbid obesity Postoperative diagnosis: same Primary procedure: Laparoscopic cholecystectomy Market Asset Protection Manager: JOHNNY ALEJANDRE (ANIMAL KEEPER HEAD) Estimated blood loss: <10cc Specimen: gb Findings: acute cholecystitis Anesthesia: General Complications: None Transferred to: Recovery Room Condition: Good
[2023-01-17] MEDS ORDERED: Mastisol Adhesive Liq ONE (14:50)
[2023-01-17] MEDS: HYDROMORPHONE HCL 2 MG/ML inj ONE ×4 (15:04→15:26)
[2023-01-17] MEDS ORDERED: PROMETHAZINE INJ 25 MG/ML AMP ONE (15:08)
[2023-01-17] MEDS ORDERED: METOCLOPRAMIDE 10 MG/2mL INJ ONE (15:36)
[2023-01-17 16:27] VITALS: BP 124/74; TEMP 97; O2SAT 98
== END 2023-01-17 16:25 | disposition home or self-care (01) ==
LOC: OR 10:42
PROVIDERS: ATTEND Surgery
PROC: 0FT44ZZ Resection of Gallbladder, Percutaneous Endoscopic Approach (ICD-10-PCS; principal; 2023-01-17 13:15)
DX: K80.10 Calculus of gallbladder with chronic cholecystitis without obstruction (principal); E66.01 Morbid (severe) obesity due to excess calories; Z68.44 Body mass index [BMI] 60.0-69.9, adult; I10 Essential (primary) hypertension; K21.9 Gastro-esophageal reflux disease without esophagitis; D64.9 Anemia, unspecified
CPT/HCPCS: 81025; 47562; J2550; J2704; J2765; J2001; J2250; J1170; J3010 ×2; J1100; J0694; J2405 ×2; J7120 ×2